=== PATIENT | male | born 1985 | race African-American/Black ===

== ENCOUNTER 2024-05-20 14:54 | Emergency (ER) | payer OTHER ==
[2024-05-20] MEDS ORDERED: Ketorolac Tromethamine 60 MG/2 ML VIAL ONE (15:59)
== END 2024-05-20 16:35 | disposition home or self-care (01) ==
LOC: NAV ERS 14:54
DX: S62.112A Displaced fracture of triquetrum [cuneiform] bone, left wrist, initial encounter for closed fracture (principal); V00.131A Fall from skateboard, initial encounter; Y93.51 Activity, roller skating (inline) and skateboarding
CPT/HCPCS: 96372; J1885

== ENCOUNTER 2025-01-20 16:40 | Emergency (ER) | payer SELFPAY ==
[2025-01-20] MEDS ORDERED: Ketorolac Tromethamine 30 MG (1 mL) VIAL ONE (16:52)
== END 2025-01-20 17:02 | disposition home or self-care (01) ==
LOC: NAV ERS 16:40
DX: M54.12 Radiculopathy, cervical region (principal); F17.210 Nicotine dependence, cigarettes, uncomplicated
CPT/HCPCS: 96372; 99283; J1885

== ENCOUNTER 2025-08-16 10:06 | Emergency (ER) | payer SELFPAY ==
[2025-08-16] MEDS ORDERED: Ketorolac Tromethamine 30 MG (1 mL) VIAL ONE (10:31)
[2025-08-16] MEDS ORDERED: Ondansetron PF 4 MG/2 ML Vial ONE (10:31)
[2025-08-16 10:44] LABS: #Basophils 0.1 thou/uL (0.0-0.2); #Eosinophils 0.3 thou/uL (0.0-0.7); #Lymphocytes 2.2 thou/uL (1.20-3.40); #Monocytes 0.4 thou/uL (0.11-0.59); #Neutrophils 3.9 thou/uL (1.40-6.50); %Basophils 1.2 % (0.0-1.0); %Eosinophils 4.4 % (0.0-10.0); %Lymphocytes 32.4 % (21.0-51.0); %Monocytes 5.2 % (0.0-10.0); %Neutrophils 56.8 % (42.0-75.0); Hematocrit 46.6 % (42.0-52.0); Hemoglobin 16.0 g/dL (14.0-18.0); Mean Corpuscular Hemoglobin 31.4 pg (27.0-31.0); Mean Corpuscular Volume 91.7 fl (78.0-98.0); Platelet Count 263 10x3/uL (130-400); Red Blood Cell (RBC) Count 5.08 mill/uL (4.70-6.10); White Blood Cell (WBC) Count 6.8 10x3/uL (4.8-10.8)
[2025-08-16 11:03] LABS: ALT (SGPT) 32 U/L (Less than 45); AST (SGOT) 56 U/L (11-34); Albumin 4.2 g/dL (3.1-4.5); Alkaline Phosphatase 123 U/L (40-110); Anion Gap 19 mmol/L (10-20); BUN (Urea Nitrogen) 14 mg/dL (8.9-20.6); Bilirubin, Total 0.5 mg/dL (0.3-1.2); Calc. Creatinine Clearance 0 mL/min (70-130); Calcium 9.2 mg/dL (7.8-10.44); Carbon Dioxide 20 mmol/L (22-29); Chloride 102 mmol/L (98-107); Globulin 4.1 g/dL (2.4-3.5); Glucose 150 mg/dL (70-105); Lipase 16 U/L (8-78); Sodium 137 mmol/L (136-145)
[2025-08-16 11:36] LABS: Potassium 4.3 mmol/L (3.5-5.1)
== END 2025-08-16 12:00 | disposition home or self-care (01) ==
LOC: NAV ERS 10:06
DX: K52.9 Noninfective gastroenteritis and colitis, unspecified (principal); E86.0 Dehydration; I10 Essential (primary) hypertension; F17.210 Nicotine dependence, cigarettes, uncomplicated; Z79.899 Other long term (current) drug therapy
CPT/HCPCS: 80053; 83690; 85025; 96374; 96375; J1885; J7030